=== PATIENT | male | born 1970 | race Two or more races ===

== ENCOUNTER 2017-04-07 00:33 | Emergency (ER) | payer BC, MEDICAID, OTHER ==
[~2017-04-07] VITALS: Ht 160 cm; Wt 111.2 kg
[2017-04-07 00:34] VITALS: BP 158/92
[2017-04-07] MEDS ORDERED: SILVER NITRATE STICK TP ONE (01:10)
== END 2017-04-07 01:26 | disposition home or self-care (01) ==
LOC: ED 00:49
DX: I83.91 Asymptomatic varicose veins of right lower extremity (principal)
CPT/HCPCS: 99281